=== PATIENT | male | born 2000 | race Caucasian/White ===

== ENCOUNTER 2021-11-04 10:25 | Emergency (ER) | payer OTHER, SELFPAY ==
[2021-11-04 10:39] VITALS: BP 135/82; PULSE 73; RESP 18; TEMP 37.3; O2SAT 98
--- NOTE | 2021-11-04 10:51 | ED.GENADULT ---
HPI - General Adult General Chief complaint: Upper Respiratory Infection Stated complaint: sorethroat,fatigue History of Present Illness HPI narrative: 20 y/o male. PMHx None reported. Presents to [facility] today with acute complaints of nasal congestion, sore throat, and globalized fatigue since this AM. Client tells me he has just returned from travel outside of [facility] to [place]. Unknown ill contacts. No fever, FELICIANO. No cough, chest pain, wheezing, dyspnea. No GI upset, N/V. No additional acute c/o upon PE. Related Data Home Medications Medication Instructions Recorded Confirmed No Home Medications 11/04/21 11/04/21 Allergies Allergy/AdvReac Type Severity Reaction Status Date / Time No Known Allergies Allergy Verified 11/04/21 10:59 Review of Systems Review of Systems: CONSTITUTIONAL: Denies fever, chills, sweats. Positive fatigue. EYES: Denies visual changes, redness, discharge. ENT: Positive rhinorrhea, congestion, sore throat. No otalgia. CARDIOVASCULAR: Denies chest pain, palpitations, edema. RESPIRATORY: Denies dyspnea, wheezing, cough GASTROINTESTINAL: Denies abdominal pain, nausea, vomiting, diarrhea. GENITOURINARY: Denies dysuria, hematuria, abnormal discharge SKIN: Denies rash or itching. MUSCULOSKELETAL: Denies acute back pain, joint pain, or myalgia. NEUROLOGIC: Denies numbness, or focal weakness. PSYCHIATRIC: Denies anxiety or depression. Exam Narrative: GENERAL: This is a well-nourished, well-developed adult, in no apparent distress. HEAD: normocephalic, atraumatic. EYES: PERRL. Sclera clear/white. EARS: External ears normal, auditory canals clear and without drainage, TMs normal. NOSE: External nose normal. Positive Rhinorrhea, no obstruction, nares patent. THROAT: Mucous membranes moist, posterior pharynx clear. No exudates. NECK: Neck supple, non-tender without lymphadenopathy, masses or thyromegaly. CARDIOVASCULAR: Regular rate and rhythm without murmurs, gallops, or rubs. RESPIRATORY: Clear to auscultation. Breath sounds equal bilaterally. No wheezes, rales, or rhonchi. GASTROINTESTINAL: Abdomen soft, non-tender, nondistended. Bowel sounds are active. No guarding. SKIN: warm, intact with no suspicious lesions or rash, good texture and turgor. NEURO: Alert, active, and age appropriate. No focal neurologic deficits. Course Course Level of Care: Express Care Visit Vital Signs Vital signs: Vital Signs Temperature 37.3 C 11/04/21 10:39 Pulse Rate 73 11/04/21 10:39 Respiratory Rate 18 11/04/21 10:39 Blood Pressure 135/82 11/04/21 10:39 Pulse Oximetry 98 11/04/21 10:39 Oxygen Delivery Room Air 11/04/21 10:39 Temperature 37.3 C 11/04/21 10:39 Pulse Rate 73 11/04/21 10:39 Respiratory Rate 18 11/04/21 10:39 Blood Pressure 135/82 11/04/21 10:39 Pulse Oximetry 98 11/04/21 10:39 Oxygen Delivery Room Air 11/04/21 10:39 Medical Decision Making MDM Narrative Medical decision making narrative: -Afebrile, non-tachycardic, appears non-toxic. -No hypoxemia. No respiratory concerns. -Physical exam essentially benign. -SARS Covid testing today in clinic is negative. -DC to home stable. -Resume OTC remedies prn for symptomatic reliefs. -PCP F/U 1 WK. Differential Diagnosis Differential Diagnosis: Differential Diagnosis: Consideration of the following conditions may be warranted for the presenting problem, they are not final diagnoses: upper respiratory infection, otitis media, sinusitis, RSV viral infection, bronchitis, pharyngitis, Streptococcal sore throat, COVID-19, and other. Vital Signs Vital Signs: Vital Signs Temperature 37.3 C 11/04/21 10:39 Pulse Rate 73 11/04/21 10:39 Respiratory Rate 18 11/04/21 10:39 Blood Pressure 135/82 11/04/21 10:39 Pulse Oximetry 98 11/04/21 10:39 Oxygen Delivery Room Air 11/04/21 10:39 Temperature 37.3 C 11/04/21 10:39 Pulse Rate 73
== END 2021-11-04 11:20 | disposition home or self-care (01) ==
PROVIDERS: Emergency Provider Nurse Practitioner Adult Health
DX: B34.9 Viral infection, unspecified (principal); Z20.822 Contact with and (suspected) exposure to COVID-19
CPT/HCPCS: 87426; 99213; C9803; G0463

== ENCOUNTER 2021-11-25 17:15 | Emergency (ER) | payer OTHER, SELFPAY ==
[2021-11-25 17:26] VITALS: BP 137/66; PULSE 78; RESP 18; TEMP 36.9; O2SAT 98
--- NOTE | 2021-11-25 17:47 | ED.MALEGU ---
HPI - Male Genitourinary General Chief complaint: Urogenital-Male Stated complaint: Male Urogenital Time Seen by Provider: 11/25/21 17:30 History of Present Illness HPI Narrative: William Henriquez is a 20 yo male who girlfriend contracted chlamydia and he took a single dose of Zithromax that was given to him by the doctor of his girlfriend about 2 and half weeks ago. He denies any dysuria or any discharge anything but tender area in his testicles that he says is really mild. He wants testing to make sure is cured . Denies current sexual contact.A urine sent off for test of cure for all 3 of the STDs we test forGC, chlamydia, trichomonas) and will give him the recommended doxycycline for chlamydia treatment Related Data Home Medications Medication Instructions Recorded Confirmed sertraline 50 mg tablet (Zoloft) 50 mg PO DAILY 11/25/21 11/25/21 Allergies Allergy/AdvReac Type Severity Reaction Status Date / Time No Known Allergies Allergy Verified 11/25/21 17:48 Review of Systems Review of Systems: CONSTITUTIONAL: Denies fever, chills, sweats. EYES: Denies visual changes, redness, discharge. ENT: Denies rhinorrhea, congestion, sore throat, otalgia. CARDIOVASCULAR: Denies chest pain, palpitations, edema. RESPIRATORY: Denies dyspnea, wheezing, cough GASTROINTESTINAL: Denies abdominal pain, nausea, vomiting, diarrhea. GENITOURINARY: Denies dysuria, hematuria, abnormal discharge SKIN: Denies rash or itching. NEUROLOGIC: Denies numbness, or focal weakness. PSYCHIATRIC: Denies anxiety or depression. Test of cure for STD treatment from 2 weeks ago [facility] Social History Social History (Updated 11/25/21 @ 17:50 by Mariangel Willingham, SE[employer] C[employer]) Smoking status: Current every day smoker Alcohol intake: current Comments At time of signature, I agree with nursing past medical, surgical, social and family history. There is no relevant family history pertinent to the presenting complaint. Exam Narrative: GENERAL: This is a well-nourished, well-developed patient, in mild distress. HEAD: normocephalic, atraumatic. EYES: Both he is upset because he is just realized like Sclera clear/white. Vision is grossly intact. EARS: External ears normal, Hearing grossly intact. NOSE: External nose normal without nasal discharge, nares without redness, no rhinorrhea. THROAT: Mucous membranes moist, NECK: Neck supple, non-tender CARDIOVASCULAR: Regular rate and rhythm without murmurs, gallops, or rubs. RESPIRATORY: Clear to auscultation. Breath sounds equal bilaterally. No wheezes, rales, or rhonchi. GASTROINTESTINAL: Not done SKIN: warm, intact with no suspicious lesions or rash, good texture and turgor. NEURO: awake, alert, and oriented to person, place and time. There were no obvious focal neurologic abnormalities. Steady gait EXTREMITIES: Normal range of motion. BACK: Nontender without deformity Course Course Emergency Course: Patient here for test of cure for chlamydia he took his Zithromax it was given to him by the doctor his girlfriend Patient given doxycycline 100 mg 1 twice daily x7 days following the CDC recommendations for treatment of chlamydia Discussed use of condom for all and any sexual contact throughout the course of the Doxy until he gets the results from the lab week. He iis denying any kind of urinary symptoms Level of Care: Express Care Visit Vital Signs Vital signs: Vital Signs Temperature 98.5 F 11/25/21 17:26 Pulse Rate 78 11/25/21 17:26 Respiratory Rate 18 11/25/21 17:26 Blood Pressure 137/66 11/25/21 17:26 Pulse Oximetry 98 11/25/21 17:26 Oxygen Delivery Room Air 11/25/21 17:26 Temperature 98.5 F 11/25/21 17:26 Pulse Rate 78 11/25/21 17:26 Respiratory Rate 18 11/25/21 17:26 Blood Pressure 137/66 11/25/21 17:26 Pulse Oximetry 98 11/25/21 17:26 Oxygen Delivery Room Air 11/25/21 17:26 MDM - Male Genitourinary Differential Diagnosis Differential diagnosis: L
== END 2021-11-25 17:58 | disposition home or self-care (01) ==
PROVIDERS: Emergency Provider Nurse Practitioner
DX: A74.9 Chlamydial infection, unspecified (principal); Z20.2 Contact with and (suspected) exposure to infections with a predominantly sexual mode of transmission; Z11.3 Encounter for screening for infections with a predominantly sexual mode of transmission; F17.200 Nicotine dependence, unspecified, uncomplicated
CPT/HCPCS: 87491; 87591; 87661; 99213; G0463

== ENCOUNTER 2022-08-27 16:06 | Emergency (ER) | payer OTHER, SELFPAY ==
[2022-08-27 16:12] VITALS: BP 140/83; PULSE 89; RESP 18; TEMP 37.3; O2SAT 98
--- NOTE | 2022-08-27 16:31 | ED.MALEGU ---
HPI - Male Genitourinary General Chief complaint: Urogenital-Male Stated complaint: Male Urogenital Time Seen by Provider: 08/27/22 16:21 Source: patient and RN notes reviewed Mode of arrival: ambulatory Limitations: no limitations History of Present Illness HPI Narrative: Patient presents today complaining of right testicular tenderness that started today. He is requesting testing for sexually transmitted infections. He had unprotected intercourse with a new partner 6 days ago. He has no known exposure to STIs. Denies any additional symptoms to include dysuria, hematuria, urethral discharge, redness or swelling in the scrotum or testicles. He currently rates his pain 1-2/10. He has tried no medication for symptoms prior to arrival. Related Data Allergies Allergy/AdvReac Type Severity Reaction Status Date / Time No Known Allergies Allergy Verified 08/27/22 16:20 Review of Systems Review of Systems: CONSTITUTIONAL: Denies body aches, fever, chills, or sweats. EYES: Denies visual changes, redness, or discharge. ENT: Denies rhinorrhea, congestion, sore throat, or otalgia. CARDIOVASCULAR: Denies chest pain, palpitations, or edema. RESPIRATORY: Denies cough or dyspnea. GASTROINTESTINAL: Denies abdominal pain, nausea, vomiting, or diarrhea. GENITOURINARY: Denies dysuria or hematuria.+ testicular tenderness SKIN: Denies rash, itching, or wounds. MUSCULOSKELETAL: Denies back pain, joint pain, or myalgia. NEUROLOGIC: Denies headache, numbness, tingling, or weakness. PSYCH: Denies depression or anxiety. FORMERLY [facility] Social History Social History Smoking status: Current every day smoker Alcohol intake: current Comments At time of signature, I have reviewed and agree with nursing past medical, surgical, social and family history unless otherwise noted. Please see nursing chart for further information. There is no relevant family history pertinent to the presenting complaint Exam Narrative: GENERAL: Well-appearing, well-nourished, and in no acute distress. HEAD: Normocephalic, atraumatic. EYES: EOMI. No redness or drainage. Conjunctivae normal. ENT: Mucous membranes pink and moist. NECK: Normal AROM. CHEST: No respiratory distress. : Exam chaperoned by Bev Zamora RN. Mild tenderness of the right testicle with palpation. Neither testicle is edematous. Scrotum is without any edema or erythema. Testicles are freely movable. No urethral discharge. Penis is nontender. No sores or rash noted. EXTREMITIES: Normal range of motion. No edema. SKIN: Warm, dry, no rash. Capillary refill normal. Normal skin turgor. NEURO: No focal deficits. Alert and oriented x3. Gait steady. PSYCH: Normal affect. No signs of depression or anxiety. Course Course Level of Care: Express Care Visit Vital Signs Vital signs: Vital Signs Temperature 99.1 F 08/27/22 16:12 Pulse Rate 89 08/27/22 16:12 Respiratory Rate 18 08/27/22 16:12 Blood Pressure 140/83 08/27/22 16:12 Pulse Oximetry 98 08/27/22 16:12 Oxygen Delivery Room Air 08/27/22 16:12 Temperature 99.1 F 08/27/22 16:12 Pulse Rate 89 08/27/22 16:12 Respiratory Rate 18 08/27/22 16:12 Blood Pressure 140/83 08/27/22 16:12 Pulse Oximetry 98 08/27/22 16:12 Oxygen Delivery Room Air 08/27/22 16:12 Reviewed. Pt has been instructed to follow up with his PCP regarding his elevated blood pressure today. MDM - Male Genitourinary MDM Narrative Medical decision making narrative: Labs pending for gonorrhea, chlamydia, and Trichomonas. Rocephin injection given. Prescriptions for doxycycline and Flagyl sent to pharmacy. Patient has mild tenderness to the right testicle, otherwise exam is normal without indication of torsion present. Anticipatory guidance given. Differential Diagnosis Differential diagnosis: Likely epididymitis and other (Gonorrhea, chlamydia, Trichomonas, testicul
[2022-08-27] MEDS: cefTRIAXone 500 MG, LIDOCAINE HCL 1% LOCAL INJ 1 ML IM (16:34)
== END 2022-08-27 16:50 | disposition home or self-care (01) ==
PROVIDERS: Emergency Provider Nurse Practitioner
DX: N50.811 Right testicular pain (principal); Z11.3 Encounter for screening for infections with a predominantly sexual mode of transmission; F17.200 Nicotine dependence, unspecified, uncomplicated
CPT/HCPCS: 87491; 87591; 87661; 96372; 99213; G0463; J0696

== ENCOUNTER 2022-09-01 16:17 | Emergency (ER) | payer OTHER, SELFPAY ==
[2022-09-01 16:23] VITALS: BP 136/70; PULSE 70; RESP 14; TEMP 36.9; O2SAT 99
--- NOTE | 2022-09-01 16:38 | ED.MALEGU ---
HPI - Male Genitourinary General Stated complaint: Male Urogenital Time Seen by Provider: 09/01/22 16:38 Source: patient and RN notes reviewed Mode of arrival: ambulatory Limitations: no limitations History of Present Illness HPI Narrative: 21 y/o male presented for c/o right testicular pain worsening for over one week. Currently rates pain 4/10, constant and dull. Denies redness, swelling, hardening, or change to appearance of scrotum or testicles. Patient was seen in clinic 5 days ago for the same complaint, was tested and empirically treated for gonorrhea, chlamydia, Trichomonas. He is still completing the course of doxy. STD resulted negative today. Denies associated abdominal pain, n/v/d/f/c. Denies urinary complaints such as hesitancy or dysuria, urethral discharge or penile lesions. Denies trauma or recent heavy lifting or straining. Related Data Allergies Allergy/AdvReac Type Severity Reaction Status Date / Time No Known Allergies Allergy Verified 08/27/22 16:20 Review of Systems Review of Systems: CONSTITUTIONAL: Denies body aches, fever, chills, or sweats. CARDIOVASCULAR: Denies chest pain, palpitations, or edema. RESPIRATORY: Denies cough or dyspnea. GASTROINTESTINAL: Denies abdominal pain, nausea, vomiting, or diarrhea. GENITOURINARY: Reports right testicular pain. Denies dysuria, frequency, urgency, hematuria, flank pain SKIN: Denies rash, itching, or wounds. MUSCULOSKELETAL: Denies back pain or myalgia. FOR[facility] Past Medical History Medical History (Updated 09/01/22 @ 17:23 by Lucila Hope APRN) No pertinent past medical history Social History Social History Smoking status: Current every day smoker Alcohol intake: current Comments At time of signature, I have reviewed and agree with nursing past medical, surgical, social and family history unless otherwise noted. Please see nursing chart for further information. There is no relevant family history pertinent to the presenting complaint Exam Narrative: GENERAL: Well-appearing and in no acute distress. ENT: Mucous membranes pink and moist. NECK: Normal AROM. Supple. CHEST: No respiratory distress. Clear to auscultation. HEART: Regular rate and rhythm. ABDOMEN: Soft, nontender, nondistended, normal active bowel sounds. No CVA tenderness MUSCULOSKELETAL: No bony tenderness. SKIN: Warm, dry, no rash. NEURO: No focal deficits. Alert and oriented x3. Gait steady. PSYCH: Normal affect. Course Course Emergency Course: Patient is aware of diagnosis, understands and agrees to treatment plan. Anticipatory guidance given. Patient agrees to follow-up as directed and is aware of reasons to seek care at the emergency department. Portions of this record may have been created with voice recognition software Level of Care: Express Care Visit Vital Signs Vital signs: Vital Signs Temperature 98.5 F 09/01/22 16:23 Pulse Rate 70 09/01/22 16:23 Respiratory Rate 14 09/01/22 16:23 Blood Pressure 136/70 09/01/22 16:23 Pulse Oximetry 99 09/01/22 16:23 Oxygen Delivery Room Air 09/01/22 16:23 Temperature 98.5 F 09/01/22 16:23 Pulse Rate 70 09/01/22 16:23 Respiratory Rate 14 09/01/22 16:23 Blood Pressure 136/70 09/01/22 16:23 Pulse Oximetry 99 09/01/22 16:23 Oxygen Delivery Room Air 09/01/22 16:23 Reviewed Transfer Transfered to: [facility]: Other (private vehicle) Transfer rationale: Pt is agreeable to transfer. Requests transfer to [facility] via private vehicle. Risks of transportation reviewed with pt including injury, worsening of condition and . v/u. Report called to hospital, spoke with Dr Rsoales, accepting physician. Pt is in stable condition at time of transfer. Advised to remain NPO and go directly to the hospital. MDM - Male Genitourinary MDM Narrative Medical decision making narrative: Patient pr
== END 2022-09-01 17:16 | disposition short-term general hospital (02) ==
PROVIDERS: Emergency Provider Nurse Practitioner Family
DX: N50.811 Right testicular pain (principal)
CPT/HCPCS: 81003; 99212; G0463

== ENCOUNTER 2022-09-01 17:19 | Emergency (ER) | payer OTHER, SELFPAY ==
--- NOTE | ~2022-09-01 | US_ITS ---
EXAMINATION: US scrotum doppler DATE: 09/01/2022 17:51 INDICATION: right testicle pain x 1 week . TECHNIQUE: Grayscale and Doppler ultrasound images of the testes were obtained. COMPARISON: None.. FINDINGS: The right testis measures 4.6 x 2.3 x 3.2 cm. The left testis measures 4.4 x 2.3 x 3.4 cm. No testicular mass. There is normal vascular flow to both testes. The right epididymis is normal with normal vascular flow. The left epididymis is normal with normal vascular flow. There is no hydrocele . Right varicocele. IMPRESSION: Right varicocele. Otherwise normal scrotal ultrasound findings. Reviewed, dictated and finalized at location K.
[2022-09-01 17:25] VITALS: BP 132/78; PULSE 66; RESP 16; TEMP 36.9; O2SAT 99
--- NOTE | 2022-09-01 19:15 | ED_ITS ---
HPI - Male Genitourinary General Chief complaint: Urogenital-Male Stated complaint: testicle pain Time Seen by Provider: 09/01/22 19:07 History of Present Illness HPI Narrative: Patient reports for the last week, he has noted some swelling and pain to his right testicle, it is not unbearable, he had recent STD testing that was negative. Related Data Allergies Allergy/AdvReac Type Severity Reaction Status Date / Time No Known Allergies Allergy Verified 08/27/22 16:20 Review of Systems Review of Systems: CONST: No fever. HEENT: No sore throat C/V: No chest pain RESP: No cough GI: No abdominal pain or nausea : Right testicular pain M/S: No joint pain. SKIN: No rash. NEURO: [No headache or focal numbness or weakness] PSYCH: [No depression] [facility] Past Medical History Medical History (Updated 09/01/22 @ 19:16 by Elissa Ambrosio MD) No pertinent past medical history Social History Social History Smoking status: Current every day smoker Alcohol intake: current Exam Narrative: EXAMINATION OF ORGAN SYSTEMS/BODY AREAS: Constitutional: Vital signs per nursing GENERAL:[No acute distress, non-toxic appearing.] HEAD: Normal with no signs of head trauma. EYES: EOMI, conjunctiva normal ENT: Hearing grossly intact LUNGS: Nonlabored breathing. HEART: [Regular rate and rhythm] ABD: No distention : Deferred EXT: Normal range of motion SKIN: [No rashes or lesions.] NEURO: [Alert and oriented x 3. No gross focal sensory or strength deficits.] PSYCH: Normal affect Course Vital Signs Vital signs: Vital Signs Temperature 98.5 F 09/01/22 17:25 Pulse Rate 66 09/01/22 17:25 Respiratory Rate 16 09/01/22 17:25 Blood Pressure 132/78 09/01/22 17:25 Pulse Oximetry 99 09/01/22 17:25 Temperature 98.5 F 09/01/22 17:25 Pulse Rate 66 09/01/22 17:25 Respiratory Rate 16 09/01/22 17:25 Blood Pressure 132/78 09/01/22 17:25 Pulse Oximetry 99 09/01/22 17:25 MDM - Male Genitourinary MDM Narrative Medical decision making narrative: 21-year-old male presenting with testicular discomfort for the past week, vital signs stable, he is well-appearing on exam, ultrasound shows a right varicocele. Findings discussed with patient as well as the importance of follow-up to urology given the risk to fertility with this. Discussed using scrotal support. Return precautions discussed. Follow-up provided. Discharge Plan Discharge Clinical Impression: Right varicocele Patient Disposition: Home, Self-Care Condition: Stable Instructions: Antibiotic Form, Varicocele (ED) Additional Instructions: Please follow up with the urologist; you can always return for any further issues. Follow-up/Referrals: Jonas Aragon MD [Physician] - 2 Days PHYSICIAN,[employer] [Primary Care Provider] -
== END 2022-09-01 19:23 | disposition home or self-care (01) ==
PROVIDERS: Emergency Provider Emergency Medicine
DX: I86.1 Scrotal varices (principal); F17.200 Nicotine dependence, unspecified, uncomplicated
CPT/HCPCS: 76870; 81003; 93976; 99284